=== PATIENT | female | born 1970 | race Caucasian/White ===

== ENCOUNTER → 2019-01-26 | Outpatient (CLI) | payer BC ==
[2019-01-26 11:08] LABS: HCT 41.5 % (34.0-46.0); HGB 13.4 gm/dL (11.4-16.0); MCH 29.5 pg (25.0-35.0); MCHC 32.2 g/dL (31.0-37.0); MCV 91.8 fL (80.0-100.0); Mean Platelet Volume 6.5; Platelet Count 415 k/uL (150-450); RBC 4.52 m/uL (3.80-5.40); RDW 12.3 % (11.5-15.5); WBC 5.2 k/uL (3.8-10.6)
[2019-01-26 11:09] LABS: Appearance,Urine Clear (Clear); Bilirubin,Urine Negative (Negative); Blood,Urine Negative (Negative); Color,Urine Light Yellow; Glucose,Urine (UA) Negative (Negative); Ketones,Urine Negative (Negative); Leukocyte Esterase,Urine Negative (Negative); Nitrite,Urine Negative (Negative); Protein,Urine Negative (Negative); Specific Gravity,Urine 1.008 (1.001-1.035); Urobilinogen,Urine <2.0 mg/dL (<2.0)
[2019-01-26 17:50] LABS: Vitamin D 25 Hydroxy 37.8 ng/mL (30.0-100.0)
[2019-01-26 17:53] LABS: African American GFR (CKD) 126.7 (60.0-200.0); Albumin 4.2 g/dL (3.80-4.90); Albumin/Globulin Ratio 1.83 (1.60-3.17); Anion Gap 8.5 mmol/L (4.00-12.00); Calcium 9.6 mg/dL (8.7-10.3); Carbon Dioxide 32.5 mmol/L (21.6-31.8); Globulin 2.3 g/dL (1.6-3.3); Phosphorus 3.9 mg/dL (2.4-5.1); Potassium 4.2 mmol/L (3.5-5.5); Total Bilirubin 0.8 mg/dL (0.3-1.2); Total Protein 6.5 g/dL (6.2-8.2)
[2019-01-26 18:29] LABS: Parathyroid Hormone Intact 30.9 pg/mL (14.0-72.0)
== END | disposition home or self-care (01) ==
LOC: LABWHC1 10:14
PROVIDERS: ATTEND Orthopaedic Surgery
DX: S92.352D Displaced fracture of fifth metatarsal bone, left foot, subsequent encounter for fracture with routine healing (principal); M79.672 Pain in left foot
CPT/HCPCS: 36415; 80053; 81003; 82306; 82310; 82652; 83970; 84100; 85027